=== PATIENT | female | born 1965 | race Caucasian/White ===

== ENCOUNTER → 2016-08-31 | Outpatient (CLI) | payer BC | END | disposition home or self-care (01) | LOC: PCVCIMAG 07:57 | PROVIDERS: ATTEND Internal Medicine Cardiovascular Disease | DX: R00.2 Palpitations (principal); G45.9 Transient cerebral ischemic attack, unspecified | CPT/HCPCS: 93306 ==

== ENCOUNTER → 2016-09-30 | Outpatient (CLI) | payer BC | LOC: PCVCIMAG 15:22 | PROVIDERS: ATTEND Internal Medicine Cardiovascular Disease | DX: G45.9 Transient cerebral ischemic attack, unspecified (principal) | CPT/HCPCS: 93880 ==

== ENCOUNTER → 2019-01-17 | Outpatient (CLI) | payer BC ==
--- NOTE | 2019-01-17 17:02 | PCVCIMAG ---
APPROVED REPORT Study performed: 01/17/2019 15:21:31 Exam: Stress Echocardiogram Indication: Hyperlipidemia, History of TIA Patient Location: Echo lab Stress Nurse: Kalyani Calderon RN Status: routine Ht: 5 ft 7 in HR: 78 bpm BP: 100/70 mmHg Rhythm: NSR Medical History Medical History: TIA Procedure The patient underwent an Exercise Stress Test using the Protocol. Blood pressure, heart rate, and EKG were monitored. An Echocardiogram was performed by manufacturing test technician in four stages in quad fashion. At peak stress, four selected images were obtained and placed side by side with resting images for comparison. Stress Test Details Stress Test: Exercise stress testing was performed using a protocol. HR Resting HR: 78 bpmMax Heart Rate (APMHR): 165 bpm Max HR Achieved: 166 bpmTarget HR (85% APMHR): 140 bpm % of APMHR: 100 Recovery HR: 87 bpm HR response to stress: Normal HR response to stress BP Resting BP: 100/70 mmHg Max BP: 158/70 mmHg Recovery BP: 118/66 mmHg BP response to stress: Normal blood pressure response to stress. ECG Resting ECG: Sinus Rhythm Stress ECG: Sinus Rhythm Recovery ECG: Sinus Rhythm Clinical Reason for Termination: Maximal effort Exercise duration: 9 min 21 sec Highest Stage Achieved: Stage 4: 4.2 mph at 16% grade. Exercise capacity: 11.20 METs Overall Exercise Capacity for Age: Normal Pre-Stress Echo The resting Echocardiogram showed normal left ventricular contractility with an estimated Ejection Fraction of about 55-60%. Normal wall motion in all segments on baseline images. Post-Stress Echo The stress Echocardiogram showed normal left ventricular contractility with an estimated Ejection Fraction of about 60-65%. Normal augmentation of wall motion in all segments on post stress images. Clinical No clinical or ECG evidence for ischemia. Conclusion Clinical Response: Non-ischemic Exercise Capacity: Average Stress ECG Response: Non-ischemic Stress Echo Images: Non-ischemic The left ventricle is normal in size and wall thickness in both the rest and stress images. Trace mitral regurgitation. Mild tricuspid regurgitation. PA pressure is 27mmHg. Anerusymal septum. Other Information Study Quality: Good <Conclusion> The left ventricle is normal in size and wall thickness in both the rest and stress images. Trace mitral regurgitation. Mild tricuspid regurgitation. PA pressure is 27mmHg. Anerusymal septum.
== END | disposition home or self-care (01) ==
LOC: PCVCIMAG 14:50
PROVIDERS: ATTEND Internal Medicine Cardiovascular Disease
DX: I07.1 Rheumatic tricuspid insufficiency (principal); Z86.73 Personal history of transient ischemic attack (TIA), and cerebral infarction without residual deficits; Z88.2 Allergy status to sulfonamides; Z88.3 Allergy status to other anti-infective agents
CPT/HCPCS: 93325; 93351